=== PATIENT | female | born 1970 | race African-American/Black ===

== ENCOUNTER 2022-08-02 12:37 | Emergency (ER) | payer MEDICAID, OTHER ==
[~2022-08-02] VITALS: Ht 157.5 cm; Wt 45.4 kg
[2022-08-02] MEDS ORDERED: PANTOPRAZOLE 40 MG/10 ML VIAL INJ IV ONE (13:00)
[2022-08-02] MEDS ORDERED: SODIUM CHLORIDE 0.9% 1,000 ML IVB ONE (13:00)
[2022-08-02] MEDS ORDERED: ONDANSETRON HCL 4 MG/2 ML VIAL IV ONE (13:00)
[2022-08-02] MEDS ORDERED: MORPHINE SULFATE 4 MG/ML SYR/VIAL IV ONE (13:00)
[2022-08-02 13:39] LABS: Hematocrit 32.1 % (36.0-46.0); Hemoglobin 10.4 g/dL (12.2-16.2); Mean Corpuscular Hemoglobin 31.2 pg (28.0-32.0); Mean Corpuscular Hgb Conc. 32.3 g/dL (32.0-36.0); Mean Corpuscular Volume 96.8 fL (80.0-100.0); Red Blood Cells 3.31 10^6/uL (4.0-5.20); Red Cell Distribution Width 18.1 % (11.8-14.3); White Blood Cell 5.6 10^3/uL (4.4-10.8)
[2022-08-02 13:54] LABS: Albumin 3.6 g/dL (3.4-5.0); BUN/Creatinine Ratio 20.2; Potassium 3.7 mmol/L (3.5-5.1)
[2022-08-02 13:57] LABS: Bilirubin, Total 0.9 mg/dL (0.2-1.0); Total Protein 7.4 g/dL (6.4-8.2)
[2022-08-02 14:04] LABS: Basophils % (manual) 0 (0.0-2.0); Blast Cells 0; Eosinophils % (manual) 0 (0-7); Metamyelocytes % 0; Myelocytes % 0; Promyelocytes % 0; Reactive Lymphocytes 0
[2022-08-02 16:11] LABS: Urine Bacteria NONE SEEN /hpf (None Seen); Urine Blood Negative /uL (Negative); Urine Specific Gravity 1.018 (1.001-1.035); Urine WBC 2 /hpf (0 - 5)
[2022-08-02] MEDS ORDERED: ONDA-144 PO (17:13)
[2022-08-02] MEDS ORDERED: PANT40TA2 PO (17:13)
[2022-08-02 17:19] LABS: Band Neutrophils % (manual) 1; Lymphocytes % (manual) 11 (10.0-50.0); Monocytes % (manual) 3 (0-12)
[2022-08-02] MEDS ORDERED: SODIUM CHLORIDE 0.9% 1,000 ML IV ONE (21:15)
[2022-08-02 22:50] VITALS: BP 169/87
== END 2022-08-02 22:50 | disposition home or self-care (01) ==
LOC: ER 12:37 → EDBD 12:37 → ER 22:50
DX: R10.84 Generalized abdominal pain (principal); F10.239 Alcohol dependence with withdrawal, unspecified; E78.5 Hyperlipidemia, unspecified; I10 Essential (primary) hypertension; F17.210 Nicotine dependence, cigarettes, uncomplicated; F12.10 Cannabis abuse, uncomplicated; Z88.6 Allergy status to analgesic agent; Y90.8 Blood alcohol level of 240 mg/100 ml or more
CPT/HCPCS: 36415; 74176; 80053; 81001; 82150; 83690; 85007; 85027; 96361; 96374; 96375; 99284; C9113; J2270; J2405; J7030